=== PATIENT | male | born 1950 | race Caucasian/White ===

== ENCOUNTER 2017-12-07 04:50 | Inpatient (IN) ==
[2017-12-03 13:37] LABS: Appearance,Urine CLEAR; Bacteria,Urine 0 /hpf (0); Bilirubin,Urine NEG (NEG); Color,Urine YELLOW; Glucose,Urine (UA) >=500 mg/dL (NEG); Leukocyte Esterase,Urine NEG /uL (NEG); Mucus,Urine MOD /hpf (0); Nitrate,Urine NEG (NEG); Protein,Urine 30 mg/dL (NEG); Specific Gravity,Urine 1.024 (1.000-1.035); Urine Blood 0.03 mg/dL (<0.03); Urine Hyaline Cast 6 /lpf (0-2); Urine RBC 2 /hpf (0-1); Urine Squamous Epithelial Cell 0 /hpf (0-4); Urine WBC 3 /hpf (0-4); Urobilinogen,Urine NEG (NEG)
[2017-12-03 13:54] LABS: Blood Urea Nitrogen 19 mg/dl (8-23)
[2017-12-03 14:05] LABS: Basophils # (Auto) 0.1 K/mcL (0.0-0.3); Basophils % (Auto) 0.8 % (0.0-2.0); Eosinophils # (Auto) 0.2 K/mcL (0.0-0.7); Eosinophils % (Auto) 1.5 % (0.0-7.0); Granulocytes % (Auto) 74.2 % (38.0-78.0); Lymphocytes # (Auto) 1.6 K/mcL (1.5-4.8); Lymphocytes % (Auto) 15.8 % (15.5-49.0); Mean Cell Volume 85.8 fL (80.0-100.0); Mean Corpuscular HGB Conc 35.6 g/dL (31.0-36.0); Mean Corpuscular Hemoglobin 30.6 pg (26.0-34.0); Monocytes # (Auto) 0.8 K/mcL (0.1-0.9); Monocytes % (Auto) 7.7 % (1.0-12.0); Platelet Count 202 K/mcL (140-440); RBC 6.11 M/mcL (4.50-5.90); Red Cell Distribution Width 12.1 % (11.5-14.5)
[2017-12-07] MEDS ORDERED: ceFAZolin 1 GM VIAL IV SCH ×2 (05:00→07:00)
[2017-12-07] MEDS ORDERED: PREGABALIN 75 MG CAPSULE PO SCH (05:00)
[2017-12-07] MEDS ORDERED: ACETAMINOPHEN 500 MG TABLET PO SCH (05:00)
[2017-12-07] MEDS ORDERED: CELECOXIB 200 MG CAPSULE PO SCH (05:00)
[2017-12-07] MEDS ORDERED: oxyCODONE 10 MG TAB.ER.12H PO SCH (05:00)
[2017-12-07] MEDS ORDERED: KETOROLAC 30 MG, ROPIVACAINE HCL/PF 49.5 ML, EPINEPHrine 0.5 MG, 0.9 % SODIUM CHLORIDE ... IJ SCH (06:30)
[2017-12-07] MEDS ORDERED: HYDROcodone/APAP 10/325MG TABLET PO PRN (07:39)
[2017-12-07] MEDS ORDERED: TRANEXAMIC ACID 1,000 MG/10 ML VIAL IV ONE ×2 (07:39→07:45)
[2017-12-07] MEDS ORDERED: ACETAMINOPHEN 325 MG TABLET PO PRN (07:39)
[2017-12-07] MEDS ORDERED: BISACODYL 10 MG SUPP.RECT PR PRN (07:39)
[2017-12-07] MEDS ORDERED: TEMAZEPAM 15 MG CAPSULE PO PRN (07:39)
[2017-12-07] MEDS ORDERED: FLEETS ADULT ENEMA PR PRN (07:39)
[2017-12-07] MEDS ORDERED: HYDROmorphone 2 MG/ML SYRINGE IV PRN (07:39)
[2017-12-07] MEDS ORDERED: BENZOCAINE/MENTHOL 1 LOZENGE PO PRN (07:39)
[2017-12-07] MEDS ORDERED: ONDANSETRON 4 MG/2 ML VIAL IV PRN ×2 (07:39→09:25)
[2017-12-07] MEDS ORDERED: MAGNESIUM HYDROXIDE 30 ML ORAL.SUSP PO PRN (07:39)
[2017-12-07] MEDS ORDERED: POLYETHYLENE GLYCOL 3350 17 GM PACKET PO PRN (07:39)
--- NOTE | 2017-12-07 07:39 | Brief Operative Note ---
Date of procedure: 12/07/17 Pre-op diagnosis: Left knee djd severe Post-op diagnosis: same Procedure: left tka with cholo robot Grafts/Implants: Yes Anesthesia: GETA Complications: none Complications Description: 12/07/17 07:38 none Surgeon: Morgan Sweet List Of First Job Ideas: Aiden Sawyer Estimated blood loss (cc): 50 Tourniquet Time (Minutes): 52 Specimens Removed/Pathology: none sent Condition: stable Disposition: PACU
[2017-12-07] MEDS ORDERED: MIDAZOLAM 5 MG/5 ML VIAL IV ONE (07:45)
[2017-12-07] MEDS ORDERED: ROPIVACAINE HCL/PF 20 ML VIAL IJ ONE (07:45)
[2017-12-07] MEDS ORDERED: ePHEDrine 50 MG/ML AMPUL IV ONE (07:45)
[2017-12-07] MEDS ORDERED: LIDOCAINE HCL/PF 100 MG/5 ML SYRINGE IV ONE (07:45)
[2017-12-07] MEDS ORDERED: ONDANSETRON 4 MG/2 ML VIAL IV ONE (07:45)
[2017-12-07] MEDS ORDERED: DEXAMETHASONE 10 MG/ML VIAL IV ONE (07:45)
[2017-12-07] MEDS ORDERED: PROPOFOL 200 MG/20 ML VIAL IV ONE (07:45)
[2017-12-07] MEDS ORDERED: GENTAMICIN SULFATE 800 MG/20 ML VIAL IR ONE (08:07)
[2017-12-07] MEDS ORDERED: MEPERIDINE 25 MG/ML SYRINGE IV PRN (09:25)
[2017-12-07] MEDS ORDERED: LACTATED RINGERS 250 ML IV PRN (09:25)
[2017-12-07] MEDS ORDERED: IPRATROPIUM/ALBUTEROL 3 ML AMPUL.NEB NEB PRN (09:25)
[2017-12-07] MEDS ORDERED: diphenhydrAMINE 50 MG/ML VIAL IV PRN (09:25)
[2017-12-07] MEDS ORDERED: PROMETHAZINE 25 MG/ML VIAL IV PRN (09:25)
[2017-12-07] MEDS ORDERED: fentaNYL 100 MCG/2 ML VIAL IV PRN (09:25)
[2017-12-07] MEDS ORDERED: NALOXONE HCL 0.4 MG/ML VIAL IV PRN (09:25)
[2017-12-07] MEDS ORDERED: FLUMAZENIL 0.1 MG/ML ML IV PRN (09:25)
[2017-12-07] MEDS ORDERED: LACTATED RINGERS 1,000 ML IV SCH (09:30)
--- NOTE | 2017-12-07 10:19 | XRay Report ---
CLINICAL INFORMATION: Status post left knee replacement TECHNIQUE: AP and lateral left knee COMPARISON: None. FINDINGS: Status post left total knee arthroplasty. Femoral and tibial complements are in anatomic positions. There is postsurgical soft tissue and intra-articular gas IMPRESSION: Status post left knee replacement. Interpreted and Authenticated by: Jose Sanchez 12/07/17
--- NOTE | 2017-12-07 10:54 | Operative Note ---
DATE OF OPERATION: 12/07/2017 PREOPERATIVE DIAGNOSIS: Left knee degenerative arthritis, severe. POSTOPERATIVE DIAGNOSIS: Left knee degenerative arthritis, severe. PROCEDURE: Left total knee arthroplasty. SURGEON: Morgan Sweet M.D. UROLOGIC NURSE: Aiden Sawyer PA-C. MASTER AUTOMOTIVE TECHNICIAN: Jonas Jefferson CRNA. ANESTHESIA: General LMA anesthesia. COMPLICATIONS: None. ESTIMATED BLOOD LOSS: About 50 mL. TOURNIQUET TIME: 67 minutes. DESCRIPTION OF PROCEDURE: The patient was brought to the operating room and put to sleep with general LMA anesthesia. Once asleep, the patient had the left leg sterilely prepped and draped in the usual sterile fashion. Leg was confirmed with a time out. Preop antibiotics and tranexamic acid were given. We made a midline incision, a mid vastus approach performed. He was very tight. He lacked 15 degrees of extension. He only had about 90 degrees of bend. With this, we proceeded with a robotic total knee arthroplasty using the [email or web address] robot system. Two pins above and below the knee were set. We set the center of hip rotation. Medial and lateral malleoli were registered and thirty points of the femur and tibia were registered. Intra-articular pins were registered and then we balanced the knee at 15 degrees and 90 degrees. Once done, we brought the robot in and made the distal femoral cut, made our anterior and posterior chamfer cuts on the femur and then made our tibial cut. These bony fragments were removed. We preserved the posterior cruciate ligament and then removed osteophytes as well, removed the remnants of the meniscus and then trialed the size 7 tibial baseplate and size 6 femur. Once done, I then irrigated thoroughly and then placed the implant. Once this was done, we trialed the 9 and 11 poly. The 11 seemed to be the most appropriate, still showing about 6 degrees flexion contracture. We went back and stripped the posterior capsule. We did achieve full extension and full flexion and removed any excess cement. We kept the knee at 45 degrees until the cement was completely dry. We closed the mid vastus approach with #1 Stratafix x2 sutures. I also closed the skin with 2-0 Vicryl and adhesive closure. Soft tissues were injected with post-injection formula. The patient tolerated this well. TANYA:marla Job ID: [id number] Doc ID: [id number] Morgan Sweet MD
[2017-12-07] MEDS ORDERED: INSULIN REGULAR, HUMAN 1 UNIT/0.01 ML UNIT SQ SCH (11:30)
[2017-12-07] MEDS: 0.45 % SODIUM CHLORIDE 1,000 ML IV SCH ×3 (12:14→22:08)
[2017-12-07] MEDS: KETOROLAC 15 MG/ML VIAL IV SCH ×3 (14:09→23:57)
[2017-12-07] MEDS: ceFAZolin 1 GM VIAL IV SCH ×2 (15:25→23:57)
[2017-12-07] MEDS: 0.9 % SODIUM CHLORIDE 10 ML SYRINGE IV SCH ×2 (15:26→21:06)
[2017-12-07] MEDS ORDERED: DEXTROSE 50% 50 ML VIAL IV PRN (16:13)
[2017-12-07] MEDS: INSULIN LISPRO 1 UNIT/0.01 ML UNIT SQ SCH ×3 (17:33→23:59)
[2017-12-07] MEDS ORDERED: SENNOSIDES 1 TABLET PO SCH (21:00)
[2017-12-07] MEDS: DOCUSATE SODIUM 100 MG CAPSULE PO SCH (21:03)
[2017-12-07] MEDS: ASPIRIN 325 MG ENTERIC COATED TABLET PO SCH (21:04)
[2017-12-08] MEDS: INSULIN LISPRO 1 UNIT/0.01 ML UNIT SQ SCH ×3 (02:13→11:34)
[2017-12-08] MEDS: 0.45 % SODIUM CHLORIDE 1,000 ML IV SCH (06:01)
[2017-12-08] MEDS: KETOROLAC 15 MG/ML VIAL IV SCH ×2 (06:01→11:35)
[2017-12-08] MEDS: 0.9 % SODIUM CHLORIDE 10 ML SYRINGE IV SCH (06:02)
[2017-12-08 07:13] LABS: Hemoglobin A1C 10.6 % HGB (4.0-6.0)
--- NOTE | 2017-12-08 07:33 | Orthopedic Progress Note ---
Subjective Patient information: Note initiated : 12/08/17 at 7:32 am Service Date, if different from initiated Date: [] Patient: Conrad Pyle 67 y/o M admitted on 12/07/17 for Left Total Knee Arthroplaty Fady. Chief Complaint: [Pt is stable this morning on post operative day 1 without any significant concerns or complaints. Patients vital signs have remained stable. Patients dressing is dry and exhibits a grossly intact neurovascular and neuromotor exam. Patients 10 point ROS is otherwise negative. ] Objective Vital signs: Vital Signs Temp Pulse Resp BP BP Pulse Ox 12/08/17 07:19 95 12/08/17 07:18 97.3 F 20 120/76 91 12/08/17 04:00 98.1 F 82 22 115/71 94 12/08/17 00:00 97.4 F 88 22 115/66 92 12/07/17 20:00 97.6 F 95 H 24 H 127/81 94 12/07/17 17:09 95 12/07/17 15:46 98.6 F 20 117/63 94 12/07/17 13:58 95 12/07/17 13:25 109/71 98 12/07/17 12:25 103/66 96 12/07/17 11:55 112/72 95 12/07/17 11:25 115/74 96 12/07/17 11:10 113/71 94 12/07/17 10:55 111/72 95 12/07/17 10:40 96.6 F L 18 110/67 95 12/07/17 10:30 97.4 F 76 15 112/68 97 12/07/17 10:20 77 15 109/65 97 12/07/17 10:05 72 17 112/66 97 12/07/17 09:47 97.2 F 69 19 103/50 94 Intake and Output 12/07/17 12/08/17 12/08/17 21:59 05:59 13:59 Intake Total 360 / 360 1090 / 1090 Output Total 1475 / 1475 650 / 650 Balance -1115 / -1115 440 / 440 Intake: IV 990 / 990 Sodium Chloride 0.45% 1,000 ml 990 / 990 @ 100 mls/hr IV .Q10H [facility] Rx#: [id number] Oral 360 / 360 100 / 100 Output: Urine Catheter Amount 325 / 325 Void Amount 1475 / 1475 325 / 325 Other: Meal Dinner Percent of Meal Consumed 100% Feeding Ability Independent # Voids 1 Weight 258 lb 8 oz Intake & Output: Intake & Output 12/07/17 12/08/17 12/08/17 21:59 05:59 13:59 Intake Total 360 / 360 1090 / 1090 Output Total 1475 / 1475 650 / 650 Balance -1115 / -1115 440 / 440 Weight 258 lb 8 oz Intake: IV 990 / 990 Sodium Chloride 0.45% 1,000 ml 990 / 990 @ 100 mls/hr IV .Q10H [facility] Rx#: [id number] Oral 360 / 360 100 / 100 Output: Urine Catheter Amount 325 / 325 Void Amount 1475 / 1475 325 / 325 Other: Meal Dinner Percent of Meal Consumed 100% Feeding Ability Independent # Voids 1 Incision: Yes healing Incision clean and dry: Yes Dressing: Yes clean, Yes dry Weight bearing status: full Neurological exam IM: Yes motor sensory intact, Yes neurovascular intact Extremities exam IM: Yes Foot pink and warm, Yes neurovascular intact - Labs CBC & BMP: 12/08/17 03:53 12/03/17 11:26 Labs: Orthopedic Labs 12/03/17 11:26 PT 12.7 INR 0.9 APTT 28 12/08/17 12/03/17 03:53 11:26 Hgb 18.7 H Hct 41.8 52.4 Assessment and Plan (1) Hx of total knee arthroplasty The patient has been educated regarding dressing care, Physical Therapy recommendations, home exercises, restrictions, and follow up appointments. The patient has had all necessary DME prescribed. The patient has remained stable during their hospital course. The patient was discharge with a stable exam. Leave Dermabond patch intact until followup Status: Acute
--- NOTE | 2017-12-08 07:36 | Discharge Summary ---
Ortho Discharge - TKA - Patient Instructions Diet: Regular Diet Activity: activity as tolerated, weight bearing as tolerated Total Knee Protocol: For Total Knee: Start ROM JOAN with stationary bike or rocking chair. Work on gaining full extension of knee. Posterior dislocation precautions provided. Hip abductor strengthening and gait training instructions provided. Apply Cryocuff as instructed. Dressing Care: May shower in 2 days Patient Education: Total Knee Replacement (DC) Additional Instructions: CPM for home use - Problem Maintenance (1) Hx of total knee arthroplasty Status: Acute - Follow Up Plan Follow Up Appointments: Morgan Sweet MD [Physician] - 12/22/17 11:20 am Disposition: Home, Self-Care Prognosis: Good Rehab Potential: Good I certify that the patient requires SNF services: No Overall status at discharge: patient is progressing back to baseline - Orders For Discharge Prescriptions: Accu-Chek 1 each FS ACHS #90 strip Aspirin [Ecotrin] 325 mg PO BID #60 tab.ec Docusate Sodium [Colace] 100 mg PO BID #60 cap HYDROcodone/APAP 10/325MG [[place] 10/325Mg] 1 - 2 tab PO Q4HP PRN #75 tab PRN Reason: Pain Level 3-6
[2017-12-08] MEDS ORDERED: FERROUS SULFATE 325 MG TABLET PO SCH (08:00)
[2017-12-08] MEDS ORDERED: VERAPAMIL 180 MG TAB.XL.24H PO SCH (09:00)
[2017-12-08] MEDS ORDERED: LISINOPRIL 20 MG TABLET PO SCH (09:00)
[2017-12-08] MEDS ORDERED: TRIAMTERENE/HYDROCHLOROTHIAZID 1 TABLET PO SCH (09:00)
[2017-12-08] MEDS: DOCUSATE SODIUM 100 MG CAPSULE PO SCH (09:15)
[2017-12-08] MEDS: ASPIRIN 325 MG ENTERIC COATED TABLET PO SCH (09:15)
== END 2017-12-08 13:45 | disposition home or self-care (01) | DRG 470 ==
LOC: MEDSUR 04:50
PROVIDERS: ADMIT Orthopaedic Surgery; ATTEND Orthopaedic Surgery